=== PATIENT | female | born 1970 | race Caucasian/White ===

== ENCOUNTER 2020-01-21 17:34 | Emergency (ER) | payer OTHER ==
[~2020-01-21] VITALS: Ht 162.6 cm; Wt 77.4 kg
--- NOTE | 2020-01-21 18:29 | PHYS DOC ---
Past History Past Medical History: Kidney Infection, Kidney Stones, UTI General Adult EDM: Chief Complaint: FLANK PAIN HPI: HPI: ".. It hurts when I pee... burn.. I think I got a UTI...." Patient is a 49 year old female who presents with above hx and complaints. Gwen ent has been having symptoms for the past 2 weeks planing of feeling of dysuria. Patient did take some old Macrobid. Patient denies any vaginal discharge. Patient denies any lesions. Patient denies any fever. Patient denies any trauma. Patient denies history of ill contacts. Patient denies any travel outside the [facility] recently. Patient sometimes states it feels like she might have some flank pain. The pt. follows with Dr. Franco Castaneda. Pt. follows at [place]. Review of Systems: Review of Systems: Constitutional: Denies fever or chills Eyes: Denies change in visual acuity HENT: Denies nasal congestion or sore throat Respiratory: Denies cough or shortness of breath Cardiovascular: Denies chest pain or edema GI: Denies abdominal pain, nausea, vomiting, bloody stools or diarrhea : Complains of dysuria Musculoskeletal: History of some bilateral low flank pain Integument: Denies rash Neurologic: Denies headache, focal weakness or sensory changes Endocrine: Denies polyuria or polydipsia Lymphatic: Denies swollen glands Psychiatric: Denies depression or anxiety Heart Score: Risk Factors: Risk Factors: DM, Current or recent (<one month) smoker, HTN, HLP, family history of CAD, obesity. Risk Scores: Score 0 - 3: 2.5% MACE over next 6 weeks - Discharge Home Score 4 - 6: 20.3% MACE over next 6 weeks - Admit for Clinical Observation Score 7 - 10: 72.7% MACE over next 6 weeks - Early Invasive Strategies Family History: Family History: Noncontributory Current Medications: Current Meds: See assisted meds Allergies: Allergies: Allergies Coded Allergies Type Severity Reaction Last Updated Verified No Known Drug Allergies 01/21/20 No Physical Exam: PE: Constitutional: Well developed, well nourished, no acute distress, non-toxic appearance. [] HENT: Normocephalic, atraumatic, bilateral external ears normal, oropharynx moist, no oral exudates, nose normal. [] Eyes: PERRLA, EOMI, conjunctiva normal, no discharge. Glasses Neck: Normal range of motion, no tenderness, supple, no stridor. [] Cardiovascular:Heart rate regular rhythm, no murmur [] Lungs & Thorax: Bilateral breath sounds equal apex on auscultation [] Abdomen: Bowel sounds normal, soft, no tenderness, no masses, no pulsatile mas ses. No focal rebound Skin: Warm, dry, no erythema, no rash. [] Back: No tenderness, mild low bilateral CVA tenderness. [] Extremities: No tenderness, no cyanosis, no clubbing, ROM intact, no edema. [] No psoas sign Neurologic: Alert and oriented X 3, normal motor function, normal sensory function, no focal deficits noted. [] Psychologic: Affect anxious, judgement normal, mood normal. [] EKG: EKG: [] Radiology/Procedures: Radiology/Procedures: [[address] [address] IMAGING REPORT Signed PATIENT: ABE XIONG MACCOUNT: [id number] : 1970 LOCATION: ER AGE: 49 SEX: F EXAM STATUS: REG ER ORD. PHYSICIAN: JORDON MYERS MD REASON: pain PROCEDURE: ACUTE ABDOMEN SERIES Acute Abdominal Series: 01/21/2020 8:03 PM Reason for study: Pain. Comparison studies: None. Technique: Frontal view of the chest was obtained along with supine and upright views of the abdomen. Findings: Nonobstructive bowel gas pattern. No air fluid levels or free air. No suspicious gender urinary calcifications. The lungs are clear without acute consolidative opacity. No pleural effusion or pneumothorax. The cardiac and mediastinal contours are normal. Visualized osseous structures are intact. IMPRESSION: 1. Nonobstructed bowel gas pattern. 2. No acute cardiopulmonary findings. Electronically signed by: Anna Mathew MD (01/21/2020 8:56 PM) [facility] DICTATED AND SIGNED BY: ANNA MATHEW MD DATE: 01/21/202055 CC: JORDON MYERS MD; PCP,NO ~ ][address] [address] IMAGING REPORT Signed PATIENT: ABE XIONG MACCOUNT: [id number] : 1970 LOCATION: ER AGE: 49 SEX: F EXAM STATUS: REG ER ORD. PHYSICIAN: JORDON MYERS MD REASON: hx flank pain, hx kidney stones PROCEDURE: CT ABDOMEN PELVIS WO CONTRAST PQRS Compliance Statement: One or more of the following individualized dose reduction techniques were utilized for this examination: 1. Automated exposure control 2. Adjustment of the mA and/or kV according to patient size 3. Use of iterative reconstruction technique CT abdomen/pelvis without contrast 01/21/2020 8:03 PM INDICATION: History of flank pain and renal calculi COMPARISON: None available TECHNIQUE: Multiple axial CT images of the abdomen and pelvis were obtained without intravenous contrast. Coronal and sagittal reformats are provided. FINDINGS: Visualized portions of the lung bases are clear. Heart size is within normal limits. Evaluation of the solid abdominal viscera is limited by lack of intravenous contrast. No suspicious hepatic masses are identified. Spleen, bilateral adrenal glands, and pancreas are normal in appearance. Gallbladder is present without adjacent inflammatory changes. The abdominal aorta is normal in course and caliber. There are no pathologically enlarged lymph nodes in the abdomen and pelvis. There is no abdominal free fluid. There is no free intraperitoneal air. Small and large bowel are normal in caliber. There is no evidence for bowel obstruction. There are no pericolonic inflammatory changes. A normal, nondilated appendix is visualized without adjacent inflammatory changes. The kidneys are relatively symmetric in appearance. There is no suspicious renal mass within the limitations of a noncontrast examination. There is no hydronephrosis. There are no calculi within the kidneys, ureters or urinary bladder. Urinary bladder is within normal limits in degree of distention. Lobulated appearance of the uterus likely reflects underlying uterine leiomyoma measuring at least 8.8 x 7.9 x 8.7 cm with distortion of the endometrium. Phleboliths are identified within the pelvis. No suspicious osseous abnormality. IMPRESSION: 1. Uterine leiomyoma measuring up to 8.8 cm. This distorts the endometrium. Correlate with any history of dysfunctional uterine bleeding. No suspicious adnexal mass is identified. 2. No bowel obstruction or inflammation. No evidence for obstructive uropathy. Electronically signed by: Anna Mathew MD (01/21/2020 8:55 PM) [facility] DICTATED AND SIGNED BY: ANNA MATHEW MD DATE: 01/21/202054 CC: JORDON MYERS MD; PCP,NO ~ Course & Med Decision Making: Course & Med Decision Making Pertinent Labs and Imaging studies reviewed. (See chart for details) Patient stay on a clear fluid diet only. No solids. No milk products x2 days. Allow bowel rest. Follow-up with primary care. If continued pain consider ret urn and completing a CT with contrast. Currently no obvious surgical pathology appreciated. Does have findings of a uterine fibriod. Reportedly patient states this is an old finding. The structure does not appear to be causing neuropathy. Recommend patient follow-up with [facility] for possible candidate for intrauterine biopsy and further evaluation. Patient take Tylenol and ibuprofen for pain. Return if any concerns. [] Impression: 1. Abdomen pain 2. History of dysuria-did take Macrobid 3. History of uterine fibroids Dragon Disclaimer: Adelia Disclaimer: This electronic medical record was generated, in whole or in part, using a voice recognition dictation system. Departure Departure: Disposition: HOME/RESIDENCE PRIOR TO ADM Condition: STABLE Referrals: PCP,LIAM (PCP) Adelia Disclaimer This chart was dictated in whole or in part using Voice Recognition software in a busy, high-work load, and often noisy Emergency Department environment. It may contain unintended and wholly unrecognized errors or omissions. JORDON MYERS MD Jan 21, 2020 18:30
[2020-01-21 18:52] LABS: BARBITURATES NEG (NEG); BENZODIAZEPINES NEG (NEG); CANNABINOIDS NEG (NEG); COCAINE NEG (NEG); METHADONE NEG (NEG); OPIATES NEG (NEG); PHENCYCLIDINE NEG (NEG)
[2020-01-21 18:58] LABS: AMPHETAMINE/METHAMPHETAMINE NEG (NEG)
[2020-01-21 19:01] LABS: BILIRUBIN,URINE NEG (NEG); CLARITY,URINE CLEAR; COLOR,URINE YELLOW; GLUCOSE,URINE NEG (NEG)
[2020-01-21 19:02] LABS: BACTERIA,URINE 0 /HPF (0-FEW); NITRITE,URINE NEG (NEG); RBC,URINE OCC /HPF (0-2); SQUAMOUS EPITHELIAL CELL,UR OCC /LPF; UROBILINOGEN,URINE 0.2 mg/dL (0.2 mg/dL); WBC,URINE OCC /HPF (0-4)
[2020-01-21] MEDS ORDERED: IV RINGERS SOLUTION,LACTATED 1,000 ML IV SCH (20:15)
[2020-01-21] MEDS ORDERED: KETOROLAC 30 MG/ML VIAL. IVP ONE (20:15)
[2020-01-21 20:50] LABS: BASO # 0.1 x10^3/uL (0.0-0.2); BASO % 1 % (0-3); EOS # 0.1 x10^3/uL (0.0-0.7); EOS % 1 % (0-3); HEMATOCRIT 40.4 % (36.0-47.0); HEMOGLOBIN 13.6 g/dL (12.0-15.5); LYMPH # 2.3 x10^3/uL (1.0-4.8); LYMPH % 25 % (24-48); MEAN CORPUSCULAR HEMOGLOBIN 30 pg (25-35); MEAN CORPUSCULAR HGB CONC 34 g/dL (31-37); MEAN CORPUSCULAR VOLUME 89 fL (79-100); MONO # 0.7 x10^3/uL (0.0-1.1); MONO % 8 % (0-9); NEUT # 6.1 x10^3uL (1.8-7.7); NEUT % 65 % (31-73); PLATELET COUNT 271 x10^3/uL (140-400); RED BLOOD COUNT 4.56 x10^6/uL (3.50-5.40); RED CELL DISTRIBUTION WIDTH 13.8 % (11.5-14.5); WHITE BLOOD COUNT 9.3 x10^3/uL (4.0-11.0)
[2020-01-21 20:58] LABS: CALCIUM 8.7 mg/dL (8.5-10.1); CREATININE 0.8 mg/dL (0.6-1.0); GFR 75.6; POTASSIUM 3.9 mmol/L (3.5-5.1)
--- NOTE | 2020-01-21 20:58 | RAD ---
PQRS Compliance Statement: One or more of the following individualized dose reduction techniques were utilized for this examination: 1. Automated exposure control 2. Adjustment of the mA and/or kV according to patient size 3. Use of iterative reconstruction technique CT abdomen/pelvis without contrast 01/21/2020 8:03 PM INDICATION: History of flank pain and renal calculi COMPARISON: None available TECHNIQUE: Multiple axial CT images of the abdomen and pelvis were obtained without intravenous contrast. Coronal and sagittal reformats are provided. FINDINGS: Visualized portions of the lung bases are clear. Heart size is within normal limits. Evaluation of the solid abdominal viscera is limited by lack of intravenous contrast. No suspicious hepatic masses are identified. Spleen, bilateral adrenal glands, and pancreas are normal in appearance. Gallbladder is present without adjacent inflammatory changes. The abdominal aorta is normal in course and caliber. There are no pathologically enlarged lymph nodes in the abdomen and pelvis. There is no abdominal free fluid. There is no free intraperitoneal air. Small and large bowel are normal in caliber. There is no evidence for bowel obstruction. There are no pericolonic inflammatory changes. A normal, nondilated appendix is visualized without adjacent inflammatory changes. The kidneys are relatively symmetric in appearance. There is no suspicious renal mass within the limitations of a noncontrast examination. There is no hydronephrosis. There are no calculi within the kidneys, ureters or urinary bladder. Urinary bladder is within normal limits in degree of distention. Lobulated appearance of the uterus likely reflects underlying uterine leiomyoma measuring at least 8.8 x 7.9 x 8.7 cm with distortion of the endometrium. Phleboliths are identified within the pelvis. No suspicious osseous abnormality. IMPRESSION: 1. Uterine leiomyoma measuring up to 8.8 cm. This distorts the endometrium. Correlate with any history of dysfunctional uterine bleeding. No suspicious adnexal mass is identified. 2. No bowel obstruction or inflammation. No evidence for obstructive uropathy. Electronically signed by: Vivienne Munguia MD (01/21/2020 8:55 PM) [facility]
--- NOTE | 2020-01-21 20:59 | RAD ---
Acute Abdominal Series: 01/21/2020 8:03 PM Reason for study: Pain. Comparison studies: None. Technique: Frontal view of the chest was obtained along with supine and upright views of the abdomen. Findings: Nonobstructive bowel gas pattern. No air fluid levels or free air. No suspicious gender urinary calcifications. The lungs are clear without acute consolidative opacity. No pleural effusion or pneumothorax. The cardiac and mediastinal contours are normal. Visualized osseous structures are intact. IMPRESSION: 1. Nonobstructed bowel gas pattern. 2. No acute cardiopulmonary findings. Electronically signed by: Vivienne Munguia MD (01/21/2020 8:56 PM) [facility]
[2020-01-21 21:03] LABS: ALBUMIN 3.7 g/dL (3.4-5.0); DIRECT BILIRUBIN 0.1 mg/dL (0.0-0.2); TOTAL BILIRUBIN 0.4 mg/dL (0.2-1.0); TOTAL PROTEIN 7.5 g/dL (6.4-8.2)
[2020-01-21 22:03] VITALS: BP 144/66
== END 2020-01-21 22:40 | disposition home or self-care (01) ==
LOC: ER 17:34
DX: R10.9 Unspecified abdominal pain (principal); R30.0 Dysuria; Z87.440 Personal history of urinary (tract) infections; Z87.442 Personal history of urinary calculi
CPT/HCPCS: 36415; 74022; 74176; 80048; 80076; 80307; 81001; 82150; 83690; 85025; 96374; 99285; J1885; J7120; 96361

== ENCOUNTER 2020-09-07 16:35 | Emergency (ER) | payer OTHER ==
[~2020-09-07] VITALS: Ht 162.6 cm; Wt 71.8 kg
[2020-09-07] MEDS ORDERED: NITROGLYCERIN SUBLINGUAL 0.4 MG BOTTLE OF 25. SL PRN (17:00)
[2020-09-07] MEDS ORDERED: MORPHINE SULFATE 4 MG/ML DISP.SYRIN. IV/SQ PRN (17:00)
[2020-09-07] MEDS ORDERED: ASPIRIN 325 MG TABLET PO ONE (17:00)
--- NOTE | 2020-09-07 17:05 | PHYS DOC ---
Past History Past Medical History: Anxiety, Hypertension, Kidney Infection, Kidney Stones, UTI (TRICIA SMITH APRN) Past Surgical History: Other Additional Past Surgical Histo: D&C, WISDOM TEETH (TRICIA SMITH APRN) Alcohol Use: Rarely (TRICIA SMITH APRN) Adult General Chief Complaint Chief Complaint: ANXIETY/PANIC ATTACK HPI HPI Patient is a 49-year-old female patient with history of anxiety, hypertension, who presents to the ED today complaining of 8 out of 10 bandlike tightness around throughout her body that began today worse around her abdomen and chest region. Patient denies anything specifically exacerbating or relieving this pain. She states she took Lexapro as well as blood pressure medicine this morning with no relief. She states she was diagnosed with hypertension and anxiety around May 2020 and was put on hydrochlorothiazide. She states she stopped taking the medicine back in May., She states sometimes last month she decided to be a good pulse ox and started to exercise and resting her blood pressure medicines. She states a week ago she had a fainting spell, she was seen by the primary care doctor. She states she had other symptoms as well including anxiety and she was put on Lexapro. She states her PCP also cut her blood pressure medicine in half but told that she could have MS and requested her to follow-up with a neurologist. She states she has an appointment with a neurologist. She says today she got very anxious and developed bandlike tightness throughout her body (TRICIA SMITH APRN) Review of Systems Review of Systems Constitutional: Denies fever or chills [] Eyes: Denies change in visual acuity, redness, or eye pain [] HENT: Denies nasal congestion or sore throat [] Respiratory: Denies cough or shortness of breath [] Cardiovascular: Denies any chest pain GI: Reports bandlike tightness around her abdomen/chest denies abdominal pain, nausea, vomiting, bloody stools or diarrhea [] : Denies dysuria or hematuria [] Musculoskeletal: Denies back pain or joint pain [] Integument: Denies rash or skin lesions [] Neurologic: Denies headache, focal weakness or sensory changes [] psych: Reports anxiety All other systems were reviewed and found to be within normal limits, except as documented in this note. (MUTUNGA,TRICIA JUMPBASTING MACHINE OPERATOR) Allergies Allergies Allergies Coded Allergies Type Severity Reaction Last Updated Verified No Known Drug Allergies 01/21/20 No (TRICIA SMITH JUMPBASTING MACHINE OPERATOR) Physical Exam Physical Exam Constitutional: Well developed, well nourished, no acute distress, non-toxic appearance. [] HENT: Normocephalic, atraumatic, bilateral external ears normal, oropharynx moist, no oral exudates, nose normal. [] Eyes: PERRLA, EOMI, conjunctiva normal, no discharge. [] Neck: Normal range of motion, no tenderness, supple, no stridor. [] Cardiovascular:Heart rate regular rhythm, no murmur [] Lungs & Thorax: Bilateral breath sounds clear to auscultation [] Abdomen: Bowel sounds normal, soft, no tenderness, no masses, no pulsatile masses. [] Skin: Warm, dry, no erythema, no rash. [] Back: No tenderness, no CVA tenderness. [] Extremities: No tenderness, no cyanosis, no clubbing, ROM intact, no edema. [] Neurologic: Alert and oriented X 3, normal motor function, normal sensory function, no focal deficits noted, cranial nerves II through XII intact Psychologic: Patient appears anxious. She was tearful (TRICIA SMITH MELLY) EKG EKG [] (TRICIA SMITH MELLY) Radiology/Procedures Radiology/Procedures []PROCEDURE: CT ANGIO CHEST ABD PELVIS CT angiogram of the chest, abdomen and pelvis with contrast: Reason for examination: Chest pain radiating to the back. Evaluate for dissection. Helical images were obtained through the chest, abdomen and pelvis with intravenous administration of 100 cc Isovue 350 using angiographic protocol. 3-D MIPS reconstruction was performed in sagittal and coronal planes. Volume rendered images were obtained. Exposure: One or more of the following individualized dose reduction techniques were utilized for this examination: 1. Automated exposure control 2. Adjustment of the mA and/or kV according to patient size 3. Use of iterative reconstruction technique. There are tiny hypodense lesions bilaterally in the thyroid gland which may represent small cysts. The trachea and mainstem bronchi show no intraluminal lesions. No abnormality seen at the esophagus. The thoracic aorta shows no aneurysmal dilatation or dissection. The heart size is normal. No pericardial effusion is seen. There is no evidence of pulmonary embolus. No infiltrates, pleural effusions or pneumothorax are seen. No acute bony abnormality seen in the thorax. No abnormality seen at the liver, spleen, adrenal glands pancreas or gallbladder. The abdominal aorta is normal in course and caliber with no aneury smal dilatation or dissection. No abnormality seen at the inferior vena cava. The colon shows no diverticulosis, diverticulitis or colitis. No abnormality seen at the appendix. The small intestinal tract shows some dilatation and wall thickening in the proximal jejunum which may reflect enteritis. Distal small intestinal tract shows no abnormality. No focal abnormality seen at the stomach. The kidneys show no renal masses, renal calculi, hydronephrosis or evidence of obstructive uropathy. No abnormality seen at the bladder. Uterus is heterogeneous and contains a large mass consistent with a fibroid containing calcification measuring at least 10 x 7 x 8 cm in greatest dimensions. No abnormality seen at the left ovary. The right ovary is not identified. No acute bony abnormality seen in the lumbar spine or pelvis. IMPRESSION: Tiny hypodense lesions in the thyroid gland probably representing small cysts. No evidence of aneurysm or dissection in the thoracic or abdominal aorta. Dilatation wall thickening in the proximal jejunum consistent with enteritis. Heterogeneous uterus with a large uterine mass with calcifications consistent with a fibroid measuring 10 x 7 x 8 cm in greatest dimensions. Electronically signed by: Lu Liang MD (09/07/2020 6:27 PM) [facility] DICTATED AND SIGNED BY: LU LIANG MD DATE: 09/07/201808 CC: AISHA VIRGEN MD; TRICIA SMITH APRN; PCP,UNKNOWN ~MTH0 0 (TRICIA SMITH APRN) Heart Score HEART Score for Chest Pain: HEART Score for Chest Pain Response (Comments) Value History Slighlty/Non-Suspicious 0 ECG Normal 0 Age >45 - < 65 1 Risk Factors 1 or 2 Risk Factors 1 Troponin < Normal Limit 0 Total 2 Risk Factors: Risk Factors: DM, Current or recent (<one month) smoker, HTN, HLP, family history of CAD, obesity. Risk Scores: Risk Factors: DM, Current or recent (<one month) smoker, HTN, HLP, family history of CAD, obesity. (TRICIA SMITH APRN) Course & Med Decision Making Course & Med Decision Making Pertinent Labs and Imaging studies reviewed. (See chart for details) This is a 49-year-old female patient with history of anxiety and hypertension who presents to the ED today with multiple complaints. Patient is reporting anxiety. She is also reporting feeling her whole body has a bandlike tension squeezing her worse around her abdomen and lower chest. CBC, CMP, lipase, cardiac enzyme specifically troponin, EKG and negative for any acute findings. CT angio chest abdomen and pelvis is negative for any acute findings, noted for thyroid nodules, enteritis, fibroids. Spoke to patient about her results, we agreed a copy of the results will be given to her to take to her PCP. She has an appointment with a neurologist that was set up by her PCP because they were concerned her symptoms could be MS. She has been very anxious in the ED and at times tearful. (TRICIA SMITH APRN) Dragon Disclaimer Dragon Disclaimer This electronic medical record was generated, in whole or in part, using a voice recognition dictation system. (TRICIA SMITH APRN) Departure Departure: Impression: Primary Impression: Anxiety Additional Impression: Thyroid mass Disposition: 01 DC HOME SELF CARE/HOMELESS Condition: STABLE Referrals: PCP,UNKNOWN (PCP) Follow-up with your doctor in 1 to 2 weeks Patient Instructions: Anxiety and Panic Attacks, [id number] Additional Instructions: You were evaluated in the emergency room, we did a CT of your chest abdomen and pelvis which were negative for any acute findings. Your lab work was negative for any acute findings please follow-up with your own doctor as well as a neurologist as soon as possible. Dragon Disclaimer This chart was dictated in whole or in part using Voice Recognition software in a busy, high-work load, and often noisy Emergency Department environment. It may contain unintended and wholly unrecognized errors or omissions. (JORDON MYERS MD) Attending Signature Attending Signature I have participated in the care of this patient and I have reviewed and agree with all pertinent clinical information above including history, exam, and recommendations. (JORDON MYERS MD) Problem Qualifiers TRICIA SMITH APRN Sep 07, 2020 17:05 JORDON MYERS MD Sep 08, 2020 19:38
[2020-09-07] MEDS ORDERED: IOHEXOL 350 MG/ML 100 ML VIAL. IV ONE (17:15)
[2020-09-07] MEDS ORDERED: ASPIRIN 325 MG TABLET ONE (17:24)
--- NOTE | 2020-09-07 17:35 | EKG ---
[address] [address] Test Date: 2020-09-07 Test Time: 17:06:05 Pat Name: ABE XIONG Department: Room: Gender: F [employer] Forensics Analyst: JOSÉ MANUEL : 1970 Requested By: TRICIA SMITH Order Number: [id number] Reading MD: Measurements Intervals [place] Rate: 68 P: 29 [place]: 138 QRS: 19 QRSD: 70 T: -1 QT: 392 QTc: 422 Interpretive Statements SINUS RHYTHM NORMAL ECG RI6.02 No previous ECG available for comparison
[2020-09-07 17:38] LABS: BASO % 0 % (0-3); EOS # 0.1 x10^3/uL (0.0-0.7); EOS % 1 % (0-3); LYMPH # 1.6 x10^3/uL (1.0-4.8); LYMPH % 16 % (24-48); MEAN CORPUSCULAR HEMOGLOBIN 29 pg (25-35); MEAN CORPUSCULAR HGB CONC 33 g/dL (31-37); MEAN CORPUSCULAR VOLUME 88 fL (79-100); MONO # 0.6 x10^3/uL (0.0-1.1); MONO % 6 % (0-9); NEUT # 7.8 x10^3uL (1.8-7.7); NEUT % 77 % (31-73); PLATELET COUNT 304 x10^3/uL (140-400); RED BLOOD COUNT 4.88 x10^6/uL (3.50-5.40); RED CELL DISTRIBUTION WIDTH 14.3 % (11.5-14.5); WHITE BLOOD COUNT 10.1 x10^3/uL (4.0-11.0)
[2020-09-07 17:40] LABS: CALCIUM 9.3 mg/dL (8.5-10.1); CREATININE 1.1 mg/dL (0.6-1.0); GFR 52.4; POTASSIUM 3.9 mmol/L (3.5-5.1)
[2020-09-07 17:57] LABS: MAGNESIUM 2.1 mg/dL (1.8-2.4); TOTAL BILIRUBIN 0.7 mg/dL (0.2-1.0); TOTAL PROTEIN 7.9 g/dL (6.4-8.2)
[2020-09-07 18:26] LABS: BARBITURATES NEG (NEG); BENZODIAZEPINES NEG (NEG); CANNABINOIDS NEG (NEG); COCAINE NEG (NEG); METHADONE NEG (NEG); OPIATES NEG (NEG); PHENCYCLIDINE NEG (NEG)
[2020-09-07 18:27] LABS: BILIRUBIN,URINE NEG (NEG); CLARITY,URINE CLEAR; COLOR,URINE STRAW; GLUCOSE,URINE NEG (NEG)
[2020-09-07 18:28] LABS: BACTERIA,URINE 0 /HPF (0-FEW); NITRITE,URINE NEG (NEG); SQUAMOUS EPITHELIAL CELL,UR OCC /LPF; UROBILINOGEN,URINE 0.2 mg/dL (0.2 mg/dL); WBC,URINE 0 /HPF (0-4)
[2020-09-07 18:30] LABS: AMPHETAMINE/METHAMPHETAMINE NEG (NEG)
--- NOTE | 2020-09-07 18:30 | RAD ---
CT angiogram of the chest, abdomen and pelvis with contrast: Reason for examination: Chest pain radiating to the back. Evaluate for dissection. Helical images were obtained through the chest, abdomen and pelvis with intravenous administration of 100 cc Isovue 350 using angiographic protocol. 3-D MIPS reconstruction was performed in sagittal and coronal planes. Volume rendered images were obtained. Exposure: One or more of the following individualized dose reduction techniques were utilized for thi s examination: 1. Automated exposure control 2. Adjustment of the mA and/or kV according to patient size 3. Use of iterative reconstruction technique. There are tiny hypodense lesions bilaterally in the thyroid gland which may represent small cysts. Th e trachea and mainstem bronchi show no intraluminal lesions. No abnormality seen at the esophagus. Th e thoracic aorta shows no aneurysmal dilatation or dissection. The heart size is normal. No pericardi al effusion is seen. There is no evidence of pulmonary embolus. No infiltrates, pleural effusions or pneumothorax are seen. No acute bony abnormality seen in the thorax. No abnormality seen at the liver, spleen, adrenal glands pancreas or gallbladder. The abdominal aorta is normal in course and caliber with no aneurysmal dilatation or dissection. No abnormality seen at the inferior vena cava. The colon shows no diverticulosis, diverticulitis or colitis. No abnormality seen at the appendix. The small intestinal tract shows some dilatation and wall thickening in the pro ximal jejunum which may reflect enteritis. Distal small intestinal tract shows no abnormality. No foc al abnormality seen at the stomach. The kidneys show no renal masses, renal calculi, hydronephrosis o r evidence of obstructive uropathy. No abnormality seen at the bladder. Uterus is heterogeneous and contains a large mass consistent with a fibroid containing calcification measuring at least 10 x 7 x 8 cm in greatest dimensions. No abnor mality seen at the left ovary. The right ovary is not identified. No acute bony abnormality seen in t he lumbar spine or pelvis. IMPRESSION: Tiny hypodense lesions in the thyroid gland probably representing small cysts. No evidence of aneurysm or dissection in the thoracic or abdominal aorta. Dilatation wall thickening in the proximal jejunum consistent with enteritis. Heterogeneous uterus with a large uterine mass with calcifications consistent with a fibroid measurin g 10 x 7 x 8 cm in greatest dimensions. Electronically signed by: Lu Curran MD (09/07/2020 6:27 PM) [facility]
[2020-09-07] MEDS ORDERED: HYDR-2145 (19:00)
[2020-09-07] MEDS ORDERED: ANTIANXIETY (19:01)
[2020-09-07 19:30] VITALS: BP 145/86
== END 2020-09-07 19:45 | disposition home or self-care (01) ==
LOC: ER 16:35
DX: F41.9 Anxiety disorder, unspecified (principal); E07.89 Other specified disorders of thyroid; I10 Essential (primary) hypertension; Z87.442 Personal history of urinary calculi; Z87.440 Personal history of urinary (tract) infections
CPT/HCPCS: 36415; 71275; 74174; 80053; 80307; 81001; 82553; 83735; 83880; 84443; 84484; 85025; 85610; 85730; 93005; 99285; Q9967

== ENCOUNTER 2020-09-16 11:16 | Emergency (ER) | payer OTHER ==
[~2020-09-16] VITALS: Ht 162.6 cm; Wt 71.2 kg
[2020-09-16 11:16] VITALS: BP 158/86
[~2020-09-16 11:16] MED LIST: ANTIANXIETY; HYDR-2145
--- NOTE | 2020-09-16 11:37 | PHYS DOC ---
Past History Past Medical History: Anxiety, Hypertension, Kidney Infection, Kidney Stones, UTI Past Surgical History: Other Additional Past Surgical Histo: D&C 1992; WISDOM TEETH 2006; Alcohol Use: Rarely General Adult EDM: Chief Complaint: MULTIPLE COMPLAINTS HPI: HPI: History gained from patient. Patient is a 29-year-old female with reported medical history of hypertension and hypothyroidism who presents with a chief complaint of body numbness. Patient states her symptoms began approximately 6 hours ago when she woke up. She states yesterday she felt as though her legs have just run a marathon. States today her legs feel like they are "turning into wood." She notes some tingling sensation to her fingers and toes. She also states that she feels as though her head is "bubbly." Patient does report an extensive medical work-up recently. She notes approximate 9 days ago she was seen in our facility for similar symptoms. She was offered admission but de clined. States the following day she developed chest pain, numbness and tingling to her extremities and was taken to [facility]. She was hospitalized at that time. She states she does have follow-up for cardiac stress testing with in the near future. She states work-up at that time was grossly unremarkable. She states they suspected this could be anxiety related. They also encouraged her to discontinue her blood pressure medication as they thought this could related to low blood pressure. She denies history of anxiety. She also notes that her primary care physician was concerned for potential multiple sclerosis. Denies history of multiple sclerosis in her family. Patient states she did see a neurologist 3 days ago. She states the neurologist had low suspicion for MS but did start her on sertraline because of their concern for anxiety. Patient denies any acute vision changes or eye pain. Denies urinary incontinence. Denies any back pain. Denies syncope. Denies any slurred speech or confusion. Denies rash. Denies vomiting. Denies wheezing. Denies sensation of throat closure. No other complaints. Review of Systems: Review of Systems: Constitutional: Denies fever or chills Eyes: Denies change in visual acuity HENT: Denies nasal congestion or sore throat Respiratory: Denies cough or shortness of breath Cardiovascular: Denies chest pain or edema GI: Denies abdominal pain, nausea, vomiting, bloody stools or diarrhea : Denies dysuria Musculoskeletal: Denies back pain or joint pain Integument: Denies rash Neurologic: Positive for numbness and tingling Endocrine: Denies polyuria or polydipsia Lymphatic: Denies swollen glands Psychiatric: Denies depression or anxiety Allergies: Allergies: Allergies Coded Allergies Type Severity Reaction Last Updated Verified No Known Drug Allergies 01/21/20 No Physical Exam: PE: Constitutional: Well developed, well nourished, no acute distress, non-toxic appearance. [] HENT: Normocephalic, atraumatic, bilateral external ears normal, oropharynx moist, no oral exudates, nose normal. [] Eyes: PERRLA, EOMI, conjunctiva normal, no discharge. [] Neck: Normal range of motion, no tenderness, supple, no stridor. [] Cardiovascular:Heart rate regular rhythm, no murmur [] Lungs & Thorax: Bilateral breath sounds clear to auscultation [] Abdomen: soft, no tenderness, no masses, no pulsatile masses. [] Skin: Warm, dry, no erythema, no rash. [] Back: No tenderness, no CVA tenderness. [] Extremities: No tenderness, no cyanosis, no clubbing, ROM intact, no edema. [] Neurologic: Alert with intact cognitive function. No aphasia, dysarthria, or neglect. GCS 15. Pupils 3 mm briskly reactive b/l. No APD present. Cranial nerves 2-12 grossly intact; no facial asymmetry present, tongue midline, shoulder shrugging strength intact. Strength 5/5 and symmetric throughout. Light touch sensation intact throughout. Cerebellar testing appropriate without evidence of dysdiadochokinesia. DTR's 2+ in all 4 extremities. Negative pronator drift bilaterally. Gait normal Psychologic: Anxious appearing. Tearful and somewhat rapid speech. Current Patient Data: Labs: Laboratory Tests Test 09/16/20 12:12 White Blood Count 7.5 x10^3/uL Red Blood Count 4.68 x10^6/uL Hemoglobin 13.4 g/dL Hematocrit 40.8 % Mean Corpuscular Volume 87 fL Mean Corpuscular Hemoglobin 29 pg Mean Corpuscular Hemoglobin Concent 33 g/dL Red Cell Distribution Width 14.1 % Platelet Count 287 x10^3/uL Neutrophils (%) (Auto) 74 % Lymphocytes (%) (Auto) 19 % Monocytes (%) (Auto) 6 % Eosinophils (%) (Auto) 1 % Basophils (%) (Auto) 1 % Neutrophils # (Auto) 5.6 x10^3uL Lymphocytes # (Auto) 1.4 x10^3/uL Monocytes # (Auto) 0.5 x10^3/uL Eosinophils # (Auto) 0.1 x10^3/uL Basophils # (Auto) 0.0 x10^3/uL Sodium Level 133 mmol/L Potassium Level 4.0 mmol/L Chloride Level 99 mmol/L Carbon Dioxide Level 26 mmol/L Anion Gap 8 Blood Urea Nitrogen 13 mg/dL Creatinine 0.9 mg/dL Estimated GFR (Cockcroft-Gault) 66.0 Glucose Level 98 mg/dL Calcium Level 8.5 mg/dL Magnesium Level 2.4 mg/dL Current Medications Medications (Trade) Dose Ordered Sig/Darren Route PRN Reason Start Time Stop Time Status Last Admin Dose Admin Lorazepam (Ativan) 0.5 mg 1X ONCE PO 09/16/20 11:45 09/16/20 11:46 DC 09/16/20 11:42 Vital Signs: Vital Signs Date Time Temp Pulse Resp B/P (MAP) Pulse Ox O2 Delivery O2 Flow Rate FiO2 09/16/20 11:16 69 16 158/86 (110) 100 Room Air EKG: EKG: EKG consistent with normal sinus rhythm. Ventricular rate of 62 bpm. [place] normal. Intervals normal. No acute ischemic changes noted. [] Radiology/Procedures: Radiology/Procedures: [address] [address] IMAGING REPORT Signed PATIENT: ABE XIONG MACCOUNT: [id number] : 1970 LOCATION: ER AGE: 49 SEX: F EXAM STATUS: REG ER ORD. PHYSICIAN: JOYCE MOISE DO REASON: numbness PROCEDURE: CHEST AP ONLY XR CHEST 1V Clinical indications: Numbness COMPARISON: January 21, 2020. Findings: No acute lung infiltrate or pleural effusion or pulmonary edema or lung mass or pneumothorax is seen. The heart size, pulmonary vasculature, mediastinum and both yony are unremarkable. Impression: No acute radiographic abnormality is seen. Electronically signed by: Farhan Castillo MD (09/16/2020 11:56 AM) [id number] DICTATED AND SIGNED BY: FARHAN CASTILLO MD DATE: 09/16/20 1155 CC: PCP,UNKNOWN; JOYCE MOISE DO ~MTH0 [address] [place] [address] IMAGING REPORT Signed PATIENT: ABE XIONG MACCOUNT: [id number] : 1970 LOCATION: ER AGE: 49 SEX: F EXAM STATUS: REG ER ORD. PHYSICIAN: JOYCE MOIES DO REASON: generalized numbness PROCEDURE: CT HEAD WO CONTRAST CT scan of the head without contrast 09/16/2020 Clinical History: Generalized numbness. Technique: Unenhanced, contiguous, 5 mm axial sections were obtained through the head. One or more of the following individualized dose reduction techniques were utilized for this study: 1. Automated exposure control. 2. Adjustment of the mA and/or kV according to patient size. 3. Use of iterative reconstruction technique. Findings: The ventricles and sulci are within normal limits in size and configuration. No acute parenchymal abnormality is seen. No extra-axial fluid collection is noted. No skull fracture is seen. Impression: No acute intracranial abnormality is seen. Electronically signed by: Anand Newberry MD (09/16/2020 12:06 PM) [id number] DICTATED AND SIGNED BY: ANAND NEWBERRY MD DATE: 09/16/20 1203 CC: PCP,UNKNOWN; JOYCE MOISE DO ~MTH0 0 [] Heart Score: Risk Factors: Risk Factors: DM, Current or recent (<one month) smoker, HTN, HLP, family history of CAD, obesity. Risk Scores: Score 0 - 3: 2.5% MACE over next 6 weeks - Discharge Home Score 4 - 6: 20.3% MACE over next 6 weeks - Admit for Clinical Observation Score 7 - 10: 72.7% MACE over next 6 weeks - Early Invasive Strategies Course & Med Decision Making: Course & Med Decision Making Pertinent Labs and Imaging studies reviewed. (See chart for details) [] Patient is a 49-year-old female who presents with chief complaint of extremity tingling, numbness, "woody sensation." Patient does appear somewhat anxious with pressured speech, and tearful affect. Exam overall unremarkable. No focal neurologic deficits noted. EKG normal sinus rhythm without ischemia. Basic labs were obtained and were grossly unremarkable. Troponin was deferred as she denies any chest pain or shortness of breath. Per patient and on chart review she has had an extensive recent work-up at multiple facilities. She was recently hospitalized at [facility]. They did discontinue a blood pressure medication at that time as there was suspicion for possible low blood pressure causing her symptoms. They also were suspicious of anxiety and discharged home with a course of hydroxyzine. She does have close follow-up with [facility] for further cardiac evaluation. She also saw a neurologist several days ago for her primary care physician's concern of MS. CT head imaging today was negative. Neurologist did prescribe sertraline with the assumption that this could be related to anxiety. Patient was given 0.5 mg oral Ativan in the emergency department. Repeat assessment she states resolution of her symptoms. I did discuss results of labs and imaging in great detail with the patient. I did encourage her to continue to follow-up with her cardiology and neurology specialist. I also instructed her to follow-up with her primary care physician in the next 2 to 3 days. She states she does have a current prescription of hydroxyzine at home and encouraged her to use this as needed. At this time patient is appropriate for discharge home. She is agreeable with this plan. Return precautions discussed and understood. Stable for discharge. Adelia Disclaimer: Adelia Disclaimer: This electronic medical record was generated, in whole or in part, using a voice recognition dictation system. Departure Departure: Impression: Primary Impression: Paresthesia of upper and lower extremities of both sides Disposition: DC HOME SELF CARE/HOMELESS Condition: STABLE Referrals: PCP,UNKNOWN (PCP) Patient Instructions: Anxiety and Panic Attacks, Paresthesia Additional Instructions: Please follow-up with your primary care physician in the next 2 to 3 days.. Return the emergency department at any time should your symptoms return. JOYCE MOISE DO Sep 16, 2020 11:37
[2020-09-16] MEDS ORDERED: LORazepam 1 MG TABLET PO ONE (11:45)
--- NOTE | 2020-09-16 11:48 | EKG ---
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
--- NOTE | 2020-09-16 11:59 | RAD ---
XR CHEST 1V Clinical indications: Numbness COMPARISON: January 21, 2020. Findings: No acute lung infiltrate or pleural effusion or pulmonary edema or lung mass or pneumothora x is seen. The heart size, pulmonary vasculature, mediastinum and both yony are unremarkable. Impression: No acute radiographic abnormality is seen. Electronically signed by: Hank Castillo MD (09/16/2020 11:56 AM) [id number]
--- NOTE | 2020-09-16 12:09 | RAD ---
CT scan of the head without contrast 09/16/2020 Clinical History: Generalized numbness. Technique: Unenhanced, contiguous, 5 mm axial sections were obtained through the head. One or more of the following individualized dose reduction techniques were utilized for this study: 1. Automated exposure control. 2. Adjustment of the mA and/or kV according to patient size. 3. Use of iterative reconstruction technique. Findings: The ventricles and sulci are within normal limits in size and configuration. No acute paren chymal abnormality is seen. No extra-axial fluid collection is noted. No skull fracture is seen. Impression: No acute intracranial abnormality is seen. Electronically signed by: Anand Newberry MD (09/16/2020 12:06 PM) [id number]
[2020-09-16 12:27] LABS: BASO % 1 % (0-3); EOS # 0.1 x10^3/uL (0.0-0.7); EOS % 1 % (0-3); HEMATOCRIT 40.8 % (36.0-47.0); HEMOGLOBIN 13.4 g/dL (12.0-15.5); LYMPH # 1.4 x10^3/uL (1.0-4.8); LYMPH % 19 % (24-48); MEAN CORPUSCULAR HEMOGLOBIN 29 pg (25-35); MEAN CORPUSCULAR HGB CONC 33 g/dL (31-37); MEAN CORPUSCULAR VOLUME 87 fL (79-100); MONO # 0.5 x10^3/uL (0.0-1.1); MONO % 6 % (0-9); NEUT # 5.6 x10^3uL (1.8-7.7); NEUT % 74 % (31-73); PLATELET COUNT 287 x10^3/uL (140-400); RED BLOOD COUNT 4.68 x10^6/uL (3.50-5.40); RED CELL DISTRIBUTION WIDTH 14.1 % (11.5-14.5); WHITE BLOOD COUNT 7.5 x10^3/uL (4.0-11.0)
[2020-09-16 12:38] LABS: CALCIUM 8.5 mg/dL (8.5-10.1); CREATININE 0.9 mg/dL (0.6-1.0); MAGNESIUM 2.4 mg/dL (1.8-2.4)
== END 2020-09-16 14:00 | disposition home or self-care (01) ==
LOC: ER 11:16
DX: R20.0 Anesthesia of skin (principal); F41.9 Anxiety disorder, unspecified; I10 Essential (primary) hypertension; Z87.442 Personal history of urinary calculi; Z98.890 Other specified postprocedural states
CPT/HCPCS: 36415; 70450; 71045; 80048; 83735; 85025; 93005; 99285

== ENCOUNTER → 2021-11-05 | Outpatient (CLI) | payer OTHER ==
--- NOTE | 2021-11-05 15:40 | RAD ---
EXAM: Right calf sonogram. HISTORY: Contusion. TECHNIQUE: Sonographic imaging of the right calf at the site of palpable concern was performed. COMPARISON: None. FINDINGS: There is a focal region of hyper echogenicity within the subcutaneous soft tissues of the p osterior lateral right calf at the site of palpable concern measuring 3.7 cm in maximum dimension, th e appearance of which favors a hematoma/contusion. No fluid collection is seen. IMPRESSION: Suspected hematoma/contusion measuring approximately 3.7 cm within the superficial soft t issues of the right calf at the site of palpable concern. Continued clinical follow-up of palpable ab normalities is recommended. Electronically signed by: Milla Sandoval MD (11/05/2021 3:37 PM) [id number]
== END ==
LOC: US 14:48
PROVIDERS: ATTEND Nurse Practitioner Family
DX: S80.11XA Contusion of right lower leg, initial encounter (principal); X58.XXXA Exposure to other specified factors, initial encounter; Y93.89 Activity, other specified; Y92.89 Other specified places as the place of occurrence of the external cause; Y99.8 Other external cause status
CPT/HCPCS: 76881

== ENCOUNTER 2021-11-21 16:37 | Emergency (ER) | payer OTHER ==
[~2021-11-21] VITALS: Ht 160 cm; Wt 77.9 kg
--- NOTE | 2021-11-21 16:54 | PHYS DOC ---
Past History Past Medical History: Anxiety, Hypertension, Kidney Infection, Kidney Stones, UTI Past Surgical History: Other Additional Past Surgical Histo: D&C 1992; WISDOM TEETH 2006; Alcohol Use: Rarely Adult General Chief Complaint Chief Complaint: ABDOMINAL PAIN HPI HPI Patient is a 50-year-old female presenting for left chest wall pain. Onset was approximately 3 weeks ago without any obvious ingestion, trauma, exposure or other known mechanism of injury. Twisting, physical activity, and heat makes better. Nothing known makes worse. Pain is sharp and focal to left lateral p ortion of the chest wall without radiation. Timing of symptoms has been constant besides being alleviated by factors previously noted. No other noteworthy associated symptoms. She has never had pain like this before. Admits she has history of crippling anxiety, she self discloses she hates medications and recently self discontinued lorazepam provided by her primary care physician. 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 Lopez who prescribed metoprolol but patient reports she has not been compliant with this. No prior history of cardiac events, she has had outpatient provocative cardiac testing recently such as echocardiogram and stress test that were unremarkable. Denies any alcohol, tobacco or illicit drug use. No pertinent family history of early cardiac disease less than 50 years old Review of Systems Review of Systems Fourteen body systems of review of systems have been reviewed. See HPI for per tinent positives and negative responses, other jack all other systems are negative, non-pertinent or non-contributory Allergies Allergies Allergies Coded Allergies Type Severity Reaction Last Updated Verified No Known Drug Allergies 01/21/20 No Physical Exam Physical Exam Constitutional: Well developed, well nourished, no acute distress, non-toxic appearance. HENT: Normocephalic, atraumatic, bilateral external ears normal, oropharynx moist, no oral exudates, nose normal. Eyes: PERRLA, EOMI, conjunctiva normal, no discharge. Neck: Normal range of motion, no tenderness, supple, no stridor. Cardiovascular: Heart rate regular, sinus rhythm, no murmurs rubs or gallops. No palpable and/or visual abnormalities to entirety of the chest wall Lungs & Thorax: Bilateral breath sounds clear to auscultation Abdomen: Bowel sounds normal, soft, no tenderness, no masses, no pulsatile masses. Nonsurgical abdomen, no peritoneal signs Skin: Warm, dry, no erythema, no rash. Back: No tenderness, no CVA tenderness. Extremities: No tenderness, no cyanosis, no clubbing, ROM intact, no edema. Neurologic: Alert and oriented X 3, grossly normal motor & sensory function, no focal deficits noted. Psychologic: Anxious affect and mood Current Patient Data Vital Signs Vital Signs Date Time Temp Pulse Resp B/P (MAP) Pulse Ox O2 Delivery O2 Flow Rate FiO2 11/21/21 17:40 98.2 76 20 168/99 (122) 99 Room Air Vital Signs Date Time Temp Pulse Resp B/P (MAP) Pulse Ox O2 Delivery O2 Flow Rate FiO2 11/21/21 17:40 98.2 76 20 168/99 (122) 99 Room Air EKG EKG EKG ordered and interpreted by myself at 1707 hrs. as sinus rhythm at 72 bpm, unremarkable intervals, no axis deviation, no acute ischemic findings, no STEMI. Prior EKG obtained September 16, 2020 use for comparison and no acute change noted Radiology/Procedures Radiology/Procedures Exam: Left ribs with PA chest INDICATION: Left anterior chest wall pain TECHNIQUE: Frontal view of chest with frontal and oblique views left rib Comparisons: Chest x-ray 09/16/2020 FINDINGS: The cardiomediastinal silhouette and pulmonary vessels are within normal limits. The lung and pleural spaces are clear. No displaced rib fractures identified. IMPRESSION: 1. No acute cardiopulmonary process. 2. No displaced rib fracture. Electronically signed by: Aida Lux MD (11/21/2021 5:31 PM) [facility] Heart Score C/O Chest Pain: Yes HEART Score for Chest Pain: HEART Score for Chest Pain Response (Comments) Value History Slighlty/Non-Suspicious 0 ECG Normal 0 Age >45 - < 65 1 Risk Factors 1 or 2 Risk Factors 1 Total 2 Risk Factors: Risk Factors: DM, Current or recent (<one month) smoker, HTN, HLP, family history of CAD, obesity. Risk Scores: Risk Factors: DM, Current or recent (<one month) smoker, HTN, HLP, family history of CAD, obesity. Course & Med Decision Making Course & Med Decision Making Pertinent Labs and Imaging studies reviewed. (See chart for details) [] Dragon Disclaimer Dragon Disclaimer This electronic medical record was generated, in whole or in part, using a voice recognition dictation system. Departure Departure: Impression: Primary Impression: Atypical chest pain Additional Impression: Anxiety Disposition: HOME / SELF CARE / HOMELESS Condition: STABLE Referrals: RAZA ACUÑA DO (PCP) Additional Instructions: You were seen for chest pain, likely atypical in etiology. Your workup did not show any acute abnormalities today, but does not indicate that you do not have underlying cardiovascular disease. You do need to follow up with your primary doctor and your filling separator for further evaluation and treatment. In addition, you should follow up with your primary care physician regarding your anxiety which was contributing to your presenting issues today. You should return to the ED if you develop worsening chest pain, shortness of breath, fever, abnormal sweating, leg swelling, or any other new or concerning symptoms. Problem Qualifiers ANDREA GREGORIO DO Nov 21, 2021 16:54
--- NOTE | 2021-11-21 17:05 | EKG ---
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
--- NOTE | 2021-11-21 17:33 | RAD ---
Exam: Left ribs with PA chest INDICATION: Left anterior chest wall pain TECHNIQUE: Frontal view of chest with frontal and oblique views left rib Comparisons: Chest x-ray 09/16/2020 FINDINGS: The cardiomediastinal silhouette and pulmonary vessels are within normal limits. The lung and pleural spaces are clear. No displaced rib fractures identified. IMPRESSION: 1. No acute cardiopulmonary process. 2. No displaced rib fracture. Electronically signed by: Aida Lux MD (11/21/2021 5:31 PM) [email or web address]
[2021-11-21 17:40] VITALS: BP 168/99
== END 2021-11-21 18:00 | disposition home or self-care (01) ==
LOC: ER 16:37
DX: F41.9 Anxiety disorder, unspecified (principal); R07.89 Other chest pain; I10 Essential (primary) hypertension; Z87.440 Personal history of urinary (tract) infections; Z87.442 Personal history of urinary calculi
CPT/HCPCS: 71101; 93005; 99283